=== PATIENT | female | born 1955 | race American Indian/Alaskan Native ===

== ENCOUNTER 2018-07-19 11:30 | Observation (INO) | payer MEDICARE, OTHER ==
[2018-07-19 11:30] VITALS: BMI 25.4
--- NOTE | 2018-07-19 12:19 | ED PDOC ---
Arrival/HPI - General Chief Complaint: Abdominal Pain Historian: Patient - History of Present Illness Narrative History of Present Illness (Text): 07/19/18 12:13 63 y/o F with pmh of Gastric reflux and diabetes presents with cc of epigastric abd pain w/ burning and constipation x4days. Patient reports she is compliant with pepcid but has been intermittently vomitting. Patient is also complaining of nausea and non bloody, nonbilious vomiting. Patient recalls her last bowel movement 4 days ago, non bloody. Patient denies any fevers, chills, headache, dizziness, chest pain, shortness of breath, dyspnea on exertion, cough, diaphoresis, diarrhea, back pain, neck pain, or any other complaint. Director Of Officiating: Dr. Moncada Time/Duration: < week Symptom Onset: Sudden Symptom Course: Unchanged Quality: Burning Activities at Onset: Light Context: Home Past Medical History - Provider Review Nursing Documentation Reviewed: Yes - Infectious Disease Hx of Infectious Diseases: None - Tetanus Immunization Tetanus Immunization: Unknown - Cardiac Hx Cardiac Disorders: No - Pulmonary Hx Respiratory Disorders: No - Neurological Hx Neurological Disorder: No - HEENT Hx HEENT Disorder: No - Renal Hx Renal Disorder: No - Endocrine/Metabolic Hx Endocrine Disorders: Yes Hx Diabetes Mellitus Type 2: Yes - Hematological/Oncological Hx Blood Disorders: No - Integumentary Hx Dermatological Disorder: No - Musculoskeletal/Rheumatological Hx Musculoskeletal Disorders: No - Gastrointestinal Hx Gastrointestinal Disorders: No - Genitourinary/Gynecological Hx Genitourinary Disorders: No - Psychiatric Hx Psychophysiologic Disorder: No Hx Substance Use: No - Surgical History Other/Comment: CYST UPPER BUTT,LIPOMA UPPER BACK REMOVED - Anesthesia Hx Anesthesia: Yes Hx Anesthesia Reactions: No - Suicidal Assessment Feels Threatened In Home Enviroment: No Family/Social History - Physician Review Nursing Documentation Reviewed: Yes Family/Social History: Unknown Family HX Smoking Status: Current Some Days Smoker Hx Alcohol Use: No Hx Substance Use: No Hx Substance Use Treatment: No Allergies/Home Meds Allergies/Adverse Reactions: Allergies No Known Allergies Allergy (Verified 07/19/18 11:46) Home Medications: Home Meds Medication Instructions Recorded Confirmed MetFORMIN [glucoPHAGE] 1 tab PO BID 07/19/18 07/19/18 Review of Systems - Physician Review All systems were reviewed & negative as marked: Yes - Review of Systems Constitutional: Normal Eyes: Normal ENT: Normal Respiratory: Normal Cardiovascular: Normal Gastrointestinal: Abdominal Pain (epigastric), Constipation, Nausea, Vomiting. absent: Diarrhea Genitourinary Female: Normal Musculoskeletal: Normal. absent: Back Pain, Joint Swelling Skin: Normal Neurological: Normal Endocrine: Normal Hemo/Lymphatic: Normal Psychiatric: Normal Physical Exam Vital Signs Reviewed: Yes Vital Signs Temp Pulse Resp BP Pulse Ox 07/19/18 11:49 97.8 F 83 18 126/79 99 Temperature: Afebrile Blood Pressure: Normal Pulse: Regular Respiratory Rate: Normal Appearance: Positive for: Well-Appearing, Non-Toxic, Comfortable Pain Distress: Mild Mental Status: Positive for: Alert and Oriented X 3 - Systems Exam Head: Present: Atraumatic, Normocephalic Pupils: Present: PERRL Extroacular Muscles: Present: EOMI Conjunctiva: Present: Normal Ears: Present: Normal, NORMAL TM. No: Erythema Mouth: Present: Moist Mucous Membranes Pharnyx: Present: Normal. No: ERYTHEMA, EXUDATE, TONSILS ENLARGED Neck: Present: Normal Range of Motion Respiratory/Chest: Present: Clear to Auscultation, Good Air Exchange. No: Respiratory Distress, Accessory Muscle Use Cardiovascular: Present: Regular Rate and Rhythm, Normal S1, S2. No: Murmurs Abdomen: Present: Tenderness (epigastric), Other (no tenderness to RUQ or RLQ). No: Distention, Peritoneal Signs, Rebound, Guarding, McBurney's Point Tender, Rovsing's Sign Present, Hernias Back: Present: Normal Inspection. No: CVA Tenderness, Midline Tenderness Upper Extremity: Present: Normal Inspection. No: Cyanosis, Edema Lower Extremity: Present: Normal Inspection. No: Edema Neurological: Present: GCS=15, Speech Normal Skin: Present: Warm, Dry, Normal Color. No: Rashes Psychiatric: Present: Alert, Oriented x 3, Normal Insight, Normal Concentration Medical Decision Making ED Course and Treatment: 07/19/18 12:21 Impression: 63 y/o F presents with cc of epigastric abd pain w/ burning and constipation x4days. She denies any hx of abdomen surgery. Differential Diagnosis included but are not limited to: - Gastritis vs. Constipation Plan: -- Labs -- EKG -- Pepcid -- Zofran -- Saline IV 1000ml -- UA -- Reassess and disposition Prior Visits: Notes and results from previous visits were reviewed. Progress Notes: 07/19/18 13:18 mildly elevated lipase 351, Pending TVUS Repeat exam w/ out any lower abd pain or back pain 07/19/18 13:47 vomited again reglan ordered to US 07/19/18 15:56 TVUS unremarakble renal cyst noted 07/19/18 15:58 Ct unremarkable 07/19/18 16:[address] pt in obs for intractable vomiting 07/19/18 16:51 appreciate chitra w/ Dr. Lucero: to obs to her service pt in NAD, agreeable to plan - EKG Interpretation EKG Interpretation (Text): 07/19/18 12:24 EKG shows NSR at 86 BPM with PAC's. NO STEMI. Interpreted by me. Interpreted by ED Physician: Yes Type: 12 lead EKG - Medication Orders Current Medication Orders: Sodium Chloride (Sodium Chloride 0.9%) 1,000 mls @ 100 mls/hr IV .Q10H MOO Discontinued Medications Famotidine (Pepcid) 20 mg IVP STAT STA Stop: 07/19/18 12:09 Ondansetron HCl (Zofran Inj) 4 mg IVP STAT STA Stop: 07/19/18 12:08 - Scribe Statement The provider has reviewed the documentation as recorded by the Veronica Dickey All medical record entries made by the Monserratibally were at my direction and personally dictated by me. I have reviewed the chart and agree that the record accurately reflects my personal performance of the history, physical exam, medical decision making, and the department course for this patient. I have also personally directed, reviewed, and agree with the discharge instructions and disposition. Disposition/Present on Arrival - Present on Arrival Any Indicators Present on Arrival: No History of DVT/PE: No History of Uncontrolled Diabetes: No Urinary Catheter: No History of Decub. Ulcer: No History Surgical Site Infection Following: None - Disposition Have Diagnosis and Disposition been Completed?: Yes Diagnosis: Gastritis Disposition Time: 16:41 Patient Problems: Current Active Problems Problem Status Onset Gastritis Acute Condition: STABLE Discharge Instructions (ExitCare): Gastritis (DC) Additional Instructions: CONTINUE YOUR OTHER MEDICATIONS WRITTEN BY YOUR PRIMARY CARE DOCTOR AND YOUR STOMACH DOCTOR. SEE BOTH DOCTORS TABITHA. RETURN IF YOU VOMITING RESTARTS OR ANY OTHER ISSUE. FOLLOW UP WITH UROLOGY REGARDING YOUR CYST OF YOUR KIDNEY VIRGILIO Triana AZUL, thank you for letting us take care of you today. Your provider was Eric Rosales and you were treated for stomach pain. The emergency medical care you received today was directed at your acute symptoms. If you were prescribed any medication, please fill it and take as directed. It may take several days for your symptoms to resolve. Return to the Emergency Department if your symptoms worsen, do not improve, or if you have any other problems. Please contact your doctor or call one of the physicians/clinics you have been referred to that are listed on the Patient Visit Information form that is included in your discharge packet. Bring any paperwork you were given at discharge with you along with any medications you are taking to your follow up visit. Our treatment cannot replace ongoing medical care by a primary care provider outside of the emergency department. Thank you for allowing the [facility] team to be part of your care today. If you had an X-Ray or CT scan: A Radiologist will review the ED reading if any change in treatment is needed we will contact you. If you had a blood, urine, or wound culture: It will take several days for the results, if any change in treatment is needed we will contact you. If you had an STI test: It will take 48 hours for the results. Please call after 1 week if you have not heard back. Referrals: Mary Pires MD [Primary Care Provider] - Follow up with primary Dale Moncada MD [Non-Staff] - Follow up with primary [facility] [Outside] - Follow up with primary [facility] [Outside] - Follow up with primary [facility] [Outside] - Follow up with primary Barron Cohen MD [Staff Provider] - Follow up with primary Forms: [facility] ([place])
[2018-07-19 12:49] LABS: BASO # 0.03 K/mm3 (0.0-2.0); BASO % 0.3 % (0.0-3.0); EOS # 0.1 (0.0-0.7); EOS % 1.2 % (1.5-5.0); HEMOGLOBIN 13.7 g/dL (12.0-16.0); LYMPH # 3.4 (1.2-3.4); LYMPH % 33.3 % (22.0-35.0); MEAN CELL VOLUME 85.4 fl (80.0-105.0); MEAN CORPUSCULAR HEMOGLOBIN 27.7 pg (25.0-35.0); MEAN CORPUSCULAR HGB CONC 32.5 g/dl (31.0-37.0); MEAN PLATELET VOLUME 9.9 fl (7.0-11.0); MONO # 0.6 (0.1-0.6); MONO % 6.1 % (1.0-6.0); RBC 4.94 10^6/uL (3.5-6.1); RED CELL DISTRIBUTION WIDTH 12.6 % (11.5-14.5); WHITE BLOOD COUNT 10.1 10^3/uL (4.5-11.0)
[2018-07-19 12:49] LABS: VENOUS BLOOD GAS BASE EXCESS 1.3 mmol/L (0.0-2.0); VENOUS BLOOD GAS PO2 27 mm/Hg (30-55); VENOUS BLOOD PH 7.37 (7.32-7.43)
[2018-07-19] MEDS: Sodium Chloride 0.9% 1,000 ML IV SCH (12:54)
[2018-07-19 13:11] LABS: TROPONIN I < 0.01 ng/mL
[2018-07-19 13:12] LABS: ALB/GLOB RATIO 1.1 (1.1-1.8); ALBUMIN 4.2 g/dL (3.0-4.8); ALT/SGPT 23 U/L (7-56); AST/SGOT 26 U/L (14-36); BLOOD UREA NITROGEN 21 mg/dL (7-21); CALCIUM 10.2 mg/dL (8.4-10.5); GFR NON-AFRICAN AMERICAN > 60; LIPASE 315 U/L (23-300)
[2018-07-19] MEDS ORDERED: Iohexol 350 MG/100 ML VIAL ONE (14:46)
[2018-07-19 14:47] LABS: PH,URINE 6.5 (4.7-8.0); URINE BILIRUBIN NEGATIVE (NEGATIVE); URINE BLOOD NEGATIVE (NEGATIVE); URINE GLUCOSE (UA) >=1000 mg/dL (NEGATIVE); URINE LEUKOCYTE ESTERASE NEGATIVE Leu/uL (NEGATIVE); URINE PROTEIN 100 mg/dL (<30 mg/dL); URINE UROBILINOGEN 0.2 E.U./dL (<1 E.U./dL)
[2018-07-19 15:06] LABS: URINE APPEARANCE CLEAR (CLEAR); URINE COLOR YELLOW (YELLOW)
[2018-07-19 15:17] LABS: URINE RBC 0 - 2 /hpf (0-2)
[2018-07-19 15:18] LABS: URINE BACTERIA SMALL /hpf
--- NOTE | 2018-07-19 15:34 | US ---
Date of service: 07/19/2018 HISTORY: epig pain COMPARISON: None. TECHNIQUE: Sonographic evaluation of the right upper quadrant of the abdomen. FINDINGS: LIVER: Measures 17.3 cm in length. Normal echogenicity of the liver parenchyma. No mass. No intrahepatic bile duct dilatation. GALLBLADDER: Unremarkable. No gallstones. COMMON BILE DUCT: Measures 4 mm. No stones. No dilatation. PANCREAS: Unremarkable as visualized. No mass. No ductal dilatation. RIGHT KIDNEY: Measures 11.0 cm in length. Normal echogenicity. No calculus or hydronephrosis. Lower pole simple cyst, 11 mm. AORTA: No aneurysmal dilatation. IVC: Unremarkable. OTHER FINDINGS: None . IMPRESSION: Incidental 11 mm right lower pole renal cortical cyst. Otherwise unremarkable examination.
--- NOTE | 2018-07-19 15:58 | CT ---
Date of service: 07/19/2018 PROCEDURE: CT Abdomen and Pelvis with contrast HISTORY: epigastric pain, recurrent n/v COMPARISON: None. TECHNIQUE: Contrast dose: 100 cc of Omni 350 Radiation dose: Total exam DLP = 345.76 mGy-cm. This CT exam was performed using one or more of the following dose reduction techniques: Automated exposure control, adjustment of the mA and/or kV according to patient size, and/or use of iterative reconstruction technique. FINDINGS: LOWER THORAX: Unremarkable. LIVER: Unremarkable. No gross lesion or ductal dilatation. GALLBLADDER AND BILE DUCTS: Unremarkable. PANCREAS: Unremarkable. No gross lesion or ductal dilatation. SPLEEN: Unremarkable. ADRENALS: There is a 2.7 cm right adrenal mass. This most likely represents an adenoma. KIDNEYS AND URETERS: Unremarkable. No hydronephrosis. No solid mass. VASCULATURE: Unremarkable. No aortic aneurysm. No aortic atherosclerotic calcification or mural plaque present. BOWEL: Unremarkable. No obstruction. No gross mural thickening. APPENDIX: Normal appendix. PERITONEUM: Unremarkable. No free fluid. No free air. LYMPH NODES: Unremarkable. No enlarged lymph nodes. BLADDER: Unremarkable. REPRODUCTIVE: Multiple fibroids. The uterus measures 10 x 5.7 x 6.3 cm BONES: No acute fracture. OTHER FINDINGS: None. IMPRESSION: No acute intra-abdominal findings
--- NOTE | 2018-07-19 17:41 | CARD ---
APPROVED REPORT Date of service: 07/19/2018 EKG Measurement Heart [id number] <Conclusion> Sinus rhythm with premature atrial complexes Otherwise normal ECG
[2018-07-19] MEDS: Sodium Chloride 0.45% 1,000 ML IV SCH (20:51)
[2018-07-19] MEDS: Insulin Reg-MEDIUM-Coverage SC SCH (22:25)
[2018-07-19] MEDS ORDERED: Pneumococcal 23-Valent Vaccine IM ONE (23:24)
[2018-07-19] MEDS ORDERED: Influenza Vaccine 60 mcg/0.5 mL SYR (4YR UP) IM ONE (23:24)
--- NOTE | 2018-07-20 02:06 | HP ---
DATE OF EXAM: 07/19/2018 HISTORY OF PRESENT ILLNESS: Patient is 63-year-old, came to emergency room because of epigastric pain, burning in nature. She has been having intermittent pain for the last few days, it got worse today and so she was prompted to come to emergency room for further evaluation. Patient does complain of feeling nauseous, vomited a few times and also has constipation for the last 4 days. No fever or active bleeding. No hemoptysis. No hematemesis. No fevers or chills. PAST MEDICAL HISTORY: Significant for; 1. Noninsulin-dependent diabetes. 2. Occasional heartburn. ALLERGIES: SHE IS NOT ALLERGIC TO ANY MEDICATION. MEDICATIONS AT HOME: She was on metformin 1000 mg twice a day. PHYSICAL EXAMINATION GENERAL: She is awake and alert, and able to communicate. VITAL SIGNS: She is afebrile, pulse 90, respirations 18, and blood pressure 144/89. LUNGS: Bilateral fair airflow. No rhonchi or crackle. HEART: S1 and S2 audible. ABDOMEN: Soft, slight epigastric discomfort. NEUROLOGIC: She is awake and alert, able to communicate. LABORATORY DATA: WBC is 10, hemoglobin 13, hematocrit 42, and platelet 331. Chemistry; sodium 132, potassium 4.0, chloride 97, CO2 of 27, BUN 21, creatinine 0.6, blood sugar of 345. Troponin is 0.01. Urine shows trace ketones. CT scan of the abdomen and pelvis was done that shows no acute intraabdominal pathology. Gallbladder sonogram shows 11 mm left lower pole renal cyst. ASSESSMENT: 1. Abdominal pain. 2. Peptic ulcer disease. 3. Constipation. 4. Noninsulin-dependent diabetes. 5. Borderline lipase level. PLAN: We will start the patient on clear liquid. We will give IV fluids, IV Protonix, and will follow up her electrolytes in the a.m. GI consult by Dr. Hong has been requested. Erika Lucero MD
[2018-07-20 06:55] LABS: BASO # 0.03 K/mm3 (0.0-2.0); BASO % 0.3 % (0.0-3.0); EOS # 0.1 (0.0-0.7); EOS % 1.3 % (1.5-5.0); HEMOGLOBIN 12.7 g/dL (12.0-16.0); LYMPH # 3.6 (1.2-3.4); MEAN CELL VOLUME 84.2 fl (80.0-105.0); MEAN CORPUSCULAR HEMOGLOBIN 27.5 pg (25.0-35.0); MEAN CORPUSCULAR HGB CONC 32.7 g/dl (31.0-37.0); MEAN PLATELET VOLUME 9.8 fl (7.0-11.0); MONO # 0.6 (0.1-0.6); MONO % 5.9 % (1.0-6.0); RBC 4.61 10^6/uL (3.5-6.1); RED CELL DISTRIBUTION WIDTH 12.7 % (11.5-14.5); WHITE BLOOD COUNT 10.1 10^3/uL (4.5-11.0)
[2018-07-20 07:26] LABS: ALB/GLOB RATIO 1.2 (1.1-1.8); ALBUMIN 3.9 g/dL (3.0-4.8); ALT/SGPT 19 U/L (7-56); AST/SGOT 30 U/L (14-36); BLOOD UREA NITROGEN 12 mg/dL (7-21); CALCIUM 9.8 mg/dL (8.4-10.5); GFR NON-AFRICAN AMERICAN > 60
[2018-07-20] MEDS: Insulin Reg-MEDIUM-Coverage SC SCH ×4 (08:01→23:07)
[2018-07-20] MEDS: POLYETHYLENE GLYCOL 3350 17 GM/Dose PACKET PO SCH (10:16)
[2018-07-20] MEDS: Sodium Chloride 0.9% 1,000 ML IV SCH (10:16)
[2018-07-20] MEDS ORDERED: Magnesium Citrate Oral SOL (300 ml) PO ONE (10:57)
--- NOTE | 2018-07-20 13:22 | CON ---
DATE OF CONSULTATION: 07/20/2018 GASTROENTEROLOGY CONSULTATION REQUESTING PHYSICIAN: Dr. Lucero. REASON FOR CONSULTATION: I have been asked to see this 63-year-old female, who comes to the hospital with several days of burning epigastric pain. The patient also had several episodes of nausea and vomiting. The patient has a longstanding history of type 2 diabetes mellitus. The patient also has had constipation for several days. She did not have a bowel movement for [address] scan of the abdomen and pelvis was negative for any acute abnormalities. Ultrasound of the gallbladder showed an 11 mm renal cyst in the left lower pole. The patient had an upper endoscopy by Dr. Moncada, who is a director of software development, in 02/2018. This apparently just revealed a hiatal hernia. She is being treated with omeprazole 40 mg once a day and ranitidine 150 mg at night. She denies any rectal bleeding, melena, hematemesis, fevers, or chills. PAST MEDICAL HISTORY: Notable for type 2 diabetes mellitus, GERD. PAST SURGICAL HISTORY: Notable for removal of a lipoma from her back and removal of a gluteal cyst. SOCIAL HISTORY: She denies cigarette smoking or alcohol use. FAMILY HISTORY: Noncontributory. REVIEW OF SYSTEMS: Fourteen-point review of systems is notable for epigastric burning pain, nausea, or vomiting. MEDICATIONS: The patient's medications at home include metformin, omeprazole, and ranitidine. PHYSICAL EXAMINATION: GENERAL: Well-developed female, lying in bed, in no acute distress. VITAL SIGNS: Reveal a temperature of 98.4, blood pressure 158/89, heart rate of 64. HEENT: Reveals sclerae to be white. Conjunctivae pale. NECK: Supple. CHEST: Reveals lungs to be clear. HEART: Exam reveals regular rate and rhythm. ABDOMEN: Soft, nontender. No mass. EXTREMITIES: Show no edema. LABORATORY DATA: Revealed normal urinalysis with positive protein and trace ketones. Chemistries reveal blood sugar of 434 this morning. AST, ALT, and alk phos were all normal. CBC reveals white blood cell count 10.1, hemoglobin 12.7. IMPRESSION: A 63-year-old female with known history of gastroesophageal reflux disease, hiatal hernia with several days of epigastric burning, nausea, or vomiting. CT scan of the abdomen and pelvis did not show any acute abnormalities. 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 Etiology of the patient's symptoms maybe related to an exacerbation of reflux due to poorly controlled diabetes mellitus versus a possible gastroenteritis. She does have increased stool in the right side of her colon. RECOMMENDATIONS: 1. Continue PPI. 2. Advance diet as tolerated. 3. We will start the patient on Reglan 10 mg IV before meals and at bedtime. 4. Continue MiraLax. 5. The patient has been instructed to follow up with Dr. Moncada as an outpatient. Luis Alberto Hong MD
[2018-07-20] MEDS: Sodium Chloride 0.45% 1,000 ML IV SCH (23:15)
--- NOTE | 2018-07-21 01:28 | PN ---
DATE: 07/20/2018 SUBJECTIVE: The patient is a 63-year-old, seen and examined. She states her nausea has improved. She states she still has some abdominal discomfort and did not go to bathroom for 5 to 6 days. Denies any fever or chills. No nausea. PHYSICAL EXAMINATION VITAL SIGNS: She is afebrile. Pulse 73, respirations 20, blood pressure 111/65. LUNGS: Bilateral fair airflow. No rhonchi or crackle. HEART: S1 and S2 audible. ABDOMEN: Soft, nontender. No rebound. No guarding. Feeling of floating. LABORATORY DATA: WBC 7.1, hemoglobin 12.7, hematocrit 38.8, platelet 221. Chemistries; sodium 134, potassium 4.2, chloride 100, CO2 of 25, BUN 12, creatinine 0.6, blood sugar 346. ASSESSMENT: 1. Abdominal pain with intractable nausea and vomiting. 2. Constipation. 3. Uncontrolled diabetes. PLAN: We will continue the patient on IV fluids. She was given magnesium citrate and Fleet enema. We will start her on MiraLax daily. She is on IV Protonix. She has been started on Reglan. We will monitor the patient for another 24 hours and make disposition plan in a.m. Erika Lucero MD
[2018-07-21 07:41] VITALS: BP 126/78; PULSE 82; RESP 18; TEMP 98; O2SAT 97
[2018-07-21] MEDS: Insulin Reg-MEDIUM-Coverage SC SCH ×2 (08:04→11:52)
[2018-07-21] MEDS: POLYETHYLENE GLYCOL 3350 17 GM/Dose PACKET PO SCH (09:32)
--- NOTE | 2018-07-21 16:08 | PN ---
DATE: 07/21/2018 SUBJECTIVE: The patient is walking around in her room. She feels much better. She denies any nausea, vomiting, abdominal pain. She denies any further diarrhea. She is tolerating solid foods. PHYSICAL EXAMINATION VITAL SIGNS: Reveal temperature of 98, blood pressure 126/78 and heart rate of 82. HEENT: Reveal sclerae to be white. Conjunctivae pink. NECK: Supple. CHEST: Lungs are clear. HEART: Regular rate and rhythm. ABDOMEN: Soft and nontender. No mass. EXTREMITIES: Show no edema. LABORATORY DATA: Reveal white blood cell count 10.1 and hemoglobin 12.7. Chemistries reveal blood sugar 317. AST, ALT and alk phos were all normal. IMPRESSION: This is 63-year-old female admitted to the hospital with burning epigastric pain, nausea, vomiting and diarrhea. Her symptoms have improved with PPI and IV Reglan. She had a recent endoscopy approximately [address] Moncada. RECOMMENDATIONS: The patient is stable from GI. She can be discharged home on PPI and a short course possibly 14 days of p.o. liquid Reglan 10 mg a.c. and at bedtime. She is to be on a low-fat, low-residue diet. She is to follow up with her outside bundle helper, Dr. Moncada. Luis Alberto Hong MD
--- NOTE | 2018-07-22 02:38 | DS ---
HISTORY OF PRESENT ILLNESS: The patient is a 63-year-old black male who came with abdominal pain, intractable nausea, and persistent vomiting. She had CT scan done that showed no significant abnormality. Abdominal sonogram was done that is negative. The patient was found to be constipated and she was started on laxatives. She started to respond. She has big bowel movements. Her IV fluids were stopped, her diet was advanced, and she seems to be doing well. Blood sugar was monitored and she was discharged today in stable condition. She has been tolerating food and no more nausea or vomiting. PHYSICAL EXAMINATION: GENERAL: She is awake and alert, and able to communicate. VITAL SIGNS: She is afebrile, pulse 82, respirations 18, and blood pressure 126/78. LUNGS: Bilateral good airflow. No rhonchi or crackle. HEART: S1 and S2 audible. ABDOMEN: Soft and nontender. No rebound. No guarding. NEUROLOGIC: The patient is awake and alert, able to communicate, and ambulatory. ASSESSMENT: 1. Intractable nausea and vomiting. 2. Constipation. 3. Uncontrolled diabetes. PLAN: The patient will be discharged home today. She will resume her medications. She is advised to take MiraLax regularly and she will follow up with her PMD. Erika Lucero MD
== END 2018-07-21 13:07 | disposition home or self-care (01) ==
LOC: ED 11:30 → ERH 16:49 → 5RNO 20:48 → INTOOBSV 22:47 → OBSVTOIN 22:47
PROVIDERS: ADMIT Internal Medicine; ATTEND Internal Medicine
DX: K59.00 Constipation, unspecified (principal); E11.65 Type 2 diabetes mellitus with hyperglycemia; K21.9 Gastro-esophageal reflux disease without esophagitis; K29.00 Acute gastritis without bleeding; K27.9 Peptic ulcer, site unspecified, unspecified as acute or chronic, without hemorrhage or perforation; N28.1 Cyst of kidney, acquired; K44.9 Diaphragmatic hernia without obstruction or gangrene; Z79.84 Long term (current) use of oral hypoglycemic drugs
CPT/HCPCS: 36415; 74177; 76705; 80053; 81001; 82803; 82948; 83690; 84484; 85025; 93005; 96374; 96375; 96376; 99284; C9113; G0378; J2405; J2765; J7030; Q9967